=== PATIENT | male | born 1965 | race African-American/Black ===

== ENCOUNTER 2019-03-21 07:43 | Emergency (ER) | payer MEDICAID ==
[~2019-03-21] VITALS: Ht 167.6 cm; Wt 72.0 kg
[2019-03-21] MEDS ORDERED: IBUPROFEN 600MG TABLET PO ONE (10:30)
[2019-03-21] MEDS ORDERED: OXYCODONE HCL/ACETAMINOPHEN 5/325MG TABLET PO ONE (10:30)
[2019-03-21 11:25] VITALS: BP 148/86
== END 2019-03-21 11:31 | disposition home or self-care (01) ==
LOC: ER 07:45
DX: G89.29 Other chronic pain (principal); M79.604 Pain in right leg; R53.1 Weakness
CPT/HCPCS: 73560; 99283

== ENCOUNTER 2019-10-29 01:53 | Emergency (ER) | payer MEDICAID ==
[~2019-10-29] VITALS: Ht 157.5 cm; Wt 70.0 kg
[2019-10-29] MEDS ORDERED: ACETAMINOPHEN 500MG TABLET PO ONE (03:30)
[2019-10-29 04:19] LABS: BASOPHILS % 0.9 % (0.0-2.0); EOSINOPHILS % 3.5 % (0.0-5.0); HEMATOCRIT. 39.5 % (42.0-52.0); HEMOGLOBIN. 13.3 g/dL (14.0-18.0); LYMPHOCYTES % 37.9 % (20.0-50.0); MEAN CORPUSCULAR HEMOGLOBIN 29.1 pg (28.0-32.0); MEAN CORPUSCULAR VOLUME 86.2 fL (80.0-94.0); MEAN PLATELET VOLUME 7.7 fl (7.4-10.4); MONOCYTES % 9.6 % (2.0-8.0); NEUTROPHILS % 48.1 % (40.0-76.0); PLATELET 302 x1000/uL (130-400); RED BLOOD CELL COUNT 4.58 mill/uL (4.7-6.1); RED CELL DISTRIBUTION WIDTH 14.3 % (11.6-14.6)
[2019-10-29 04:26] LABS: CHLORIDE 108 mEq/L (98-107); INR 0.9; PROTHROMBIN TIME 9.9 sec (9.6-11.0)
[2019-10-29] MEDS ORDERED: IOHEXOL-300 100 ML BOTTLE ONE (05:51)
[2019-10-29 06:08] VITALS: BP 128/83
== END 2019-10-29 06:28 | disposition home or self-care (01) ==
LOC: ER 01:53
DX: R10.9 Unspecified abdominal pain (principal); R40.2410 Glasgow coma scale score 13-15, unspecified time; F17.200 Nicotine dependence, unspecified, uncomplicated; Y08.89XA Assault by other specified means, initial encounter; Y93.9 Activity, unspecified; Y92.9 Unspecified place or not applicable; Z71.6 Tobacco abuse counseling
CPT/HCPCS: 36415; 70450; 71101; 71270; 74178; 80053; 85025; 85610; 99285; 99406; Q9967

== ENCOUNTER 2021-07-03 03:41 | Emergency (ER) | payer MEDICAID ==
[~2021-07-03] VITALS: Ht 175.3 cm; Wt 63.5 kg
[2021-07-03 05:56] VITALS: BP 120/98
== END 2021-07-03 06:07 | disposition home or self-care (01) ==
LOC: ER 03:41
DX: T50.901A Poisoning by unspecified drugs, medicaments and biological substances, accidental (unintentional), initial encounter (principal); F12.10 Cannabis abuse, uncomplicated; Y92.018 Other place in single-family (private) house as the place of occurrence of the external cause
CPT/HCPCS: 99283

== ENCOUNTER 2021-07-04 03:16 | Emergency (ER) | payer MEDICAID ==
[~2021-07-04] VITALS: Ht 177.8 cm; Wt 77.0 kg
[2021-07-04] MEDS ORDERED: LORAZEPAM 1MG TABLET PO ONE (04:00)
[2021-07-04 04:14] LABS: BASOPHILS % 0.7 % (0.0-2.0); EOSINOPHILS % 2.1 % (0.0-5.0); HEMATOCRIT. 40.3 % (42.0-52.0); HEMOGLOBIN. 13.3 g/dL (14.0-18.0); LYMPHOCYTES % 33.4 % (20.0-50.0); MEAN CORPUSCULAR HEMOGLOBIN 27.2 pg (28.0-32.0); MEAN CORPUSCULAR VOLUME 82.7 fL (80.0-94.0); MONOCYTES % 14.6 % (2.0-8.0); NEUTROPHILS % 49.2 % (40.0-76.0); PLATELET 371 x1000/uL (130-400); RED BLOOD CELL COUNT 4.88 mill/uL (4.7-6.1); RED CELL DISTRIBUTION WIDTH 13.7 % (11.6-14.6)
[2021-07-04 04:50] LABS: CHLORIDE 102 mEq/L (98-107)
[2021-07-04 04:53] LABS: ETHANOL BLOOD < 10 mg/dL
[2021-07-04 05:20] LABS: *AMPHETAMINES SCREEN URINE NEGATIVE (NEGATIVE); *BARBITURATES SCREEN URINE NEGATIVE (NEGATIVE)
[2021-07-04 05:21] LABS: *BENZODIAZEPINES SCREEN URINE NEGATIVE (NEGATIVE); *COCAINE SCREEN URINE NEGATIVE (NEGATIVE); CANNABINOID URINE SCREEN NEGATIVE (NEGATIVE); METHADONE URINE SCREEN NEGATIVE (NEGATIVE); OPIATES URINE SCREEN NEGATIVE (NEGATIVE); PHENCYCLIDINE URINE SCREEN NEGATIVE (NEGATIVE)
[2021-07-04 05:25] VITALS: BP 130/71
== END 2021-07-04 05:30 | disposition home or self-care (01) ==
LOC: ER 03:16
DX: F41.9 Anxiety disorder, unspecified (principal); E87.1 Hypo-osmolality and hyponatremia
CPT/HCPCS: 36415; 80048; 80305; 80320; 84443; 85025; 99283; G0480

== ENCOUNTER 2025-02-15 09:39 | Emergency (ER) | payer MEDICARE, MEDICAID ==
[~2025-02-15] VITALS: Ht 167.6 cm; Wt 67.0 kg
[2025-02-15 09:44] VITALS: TEMP 37.1; O2SAT 100
[2025-02-15] MEDS: LIDOCAINE 5% PATCH TOP SCH (11:15)
[2025-02-15] MEDS: KETOROLAC 30MG/ML VIAL IM ONE (11:15)
[2025-02-15] MEDS ORDERED: IBUP-1455 MT (12:19)
[2025-02-15] MEDS ORDERED: LIDO-53 TP (12:19)
[2025-02-15] MEDS ORDERED: CYCL10TA21 MT (12:19)
[2025-02-15 12:31] VITALS: BP 137/95; PULSE 60; RESP 12; O2SAT 100
== END 2025-02-15 12:32 | disposition home or self-care (01) ==
LOC: ER 09:39
DX: M54.50 Low back pain, unspecified (principal); M25.511 Pain in right shoulder; M25.551 Pain in right hip
CPT/HCPCS: 99283; 73502; 72100; 73030; 96372; J1885